=== PATIENT | female | born 1990 | race Caucasian/White ===

== ENCOUNTER 2020-08-02 16:30 | Emergency (ER) | payer OTHER ==
[~2020-08-02] VITALS: Ht 157.5 cm; Wt 56.7 kg
[2020-08-02 18:05] VITALS: BP 108/71
== END 2020-08-02 18:05 | disposition home or self-care (01) ==
LOC: ED 16:30
DX: S92.812A Other fracture of left foot, initial encounter for closed fracture (principal); S93.492A Sprain of other ligament of left ankle, initial encounter; W10.9XXA Fall (on) (from) unspecified stairs and steps, initial encounter; Y93.89 Activity, other specified; Y92.89 Other specified places as the place of occurrence of the external cause; Y99.8 Other external cause status
CPT/HCPCS: Q0162

== ENCOUNTER 2020-08-26 09:12 | Emergency (ER) | payer OTHER ==
[~2020-08-26] VITALS: Ht 157.5 cm; Wt 58.5 kg
[2020-08-26 09:24] VITALS: Ht 157.5 cm; Wt 58.5 kg
[2020-08-26 10:32] VITALS: BP 103/64
== END 2020-08-26 10:32 | disposition home or self-care (01) ==
LOC: ED 09:12
DX: K13.0 Diseases of lips (principal)